=== PATIENT | male | born 1960 | race Caucasian/White ===

== ENCOUNTER 2019-02-05 07:05 | Outpatient (CLI) | payer OTHER | END 2019-02-05 07:45 | disposition home or self-care (01) | LOC: RAD 07:05 | DX: N40.1 Benign prostatic hyperplasia with lower urinary tract symptoms (principal) ==

== ENCOUNTER 2019-03-11 05:30 | Day surgery (SDC) | payer OTHER | END 2019-03-11 13:40 | disposition home or self-care (01) | LOC: CIR.AMB 05:30 | DX: D30.3 Benign neoplasm of bladder (principal) ==

== ENCOUNTER 2020-08-17 09:40 | Outpatient (CLI) | payer OTHER | END 2020-08-17 09:48 | disposition home or self-care (01) | LOC: RAD 09:40 | PROVIDERS: ATTEND Urology | DX: I11.0 Hypertensive heart disease with heart failure (principal) ==

== ENCOUNTER 2020-08-22 07:15 | Inpatient (IN) | payer OTHER ==
[~2020-08-22] VITALS: Ht 180.3 cm; Wt 101.6 kg
[2020-08-22] MEDS ORDERED: LOSARTAN-HCTZ1 EAC1 PO (09:53)
[2020-08-22] MEDS ORDERED: CARDURA XL4 MG PO (09:54)
[2020-08-22] MEDS ORDERED: PROTONIX40 MG PO (09:54)
[2020-08-22] MEDS ORDERED: COMPLETE OMEGA1 EACH PO (09:54)
[2020-08-24] MEDS ORDERED: FINASTERIDE5 MG (08:13)
[2020-08-24] MEDS ORDERED: FENOFIBRATE54 MG (08:13)
[2020-08-24] MEDS ORDERED: AMLODIPINE BESYL5 MG (08:13)
== END 2020-08-26 13:28 | disposition home or self-care (01) | DRG 714 ==
LOC: SURH 08-24 05:05 → O/R 08-24 05:05 → SURH 08-24 07:00
PROVIDERS: ADMIT Urology; ATTEND Urology
PROC: 0VT08ZZ Resection of Prostate, Via Natural or Artificial Opening Endoscopic (ICD-10-PCS; principal; 2020-08-24 07:00)
DX: N40.1 Benign prostatic hyperplasia with lower urinary tract symptoms (principal); C67.9 Malignant neoplasm of bladder, unspecified; I10 Essential (primary) hypertension; N41.0 Acute prostatitis; N41.1 Chronic prostatitis